=== PATIENT | male | born 1990 | race Two or more races ===

== ENCOUNTER 2021-12-24 22:23 | Emergency (ER) | payer MEDICAID ==
[~2021-12-24] VITALS: Ht 175.3 cm; Wt 100.0 kg
[2021-12-24 22:23] VITALS: BP 101/48
[2021-12-24 23:37] LABS: Basophils # (auto) 0 10 ^3/uL (0-0.2); Basophils % (auto) 0.1 % (0.0-2.0); Eosinophils # (auto) 0 10 ^3/uL (0-0.8); Hematocrit 46.9 % (41.0-53.0); Hemoglobin 15.1 g/dL (13.5-17.5); Lymphocytes # (auto) 0.6 10 ^3/uL (0.4-5.4); Lymphocytes % (auto) 3.9 % (10.0-50.0); Mean Corpuscular Hemoglobin 27.6 pg (28.0-32.0); Mean Corpuscular Hgb Conc. 32.1 g/dL (32.0-36.0); Mean Corpuscular Volume 85.8 fL (80.0-100.0); Monocytes # (auto) 0.5 10 ^3/uL (0-1.3); Monocytes % (auto) 2.8 % (0.0-12.0); Neutrophils # (auto) 15.3 10 ^3/uL (1.6-8.6); Neutrophils % (auto) 93.2 % (37.0-80.0); Red Blood Cells 5.46 10^6/uL (4.5-5.90); Red Cell Distribution Width 13.3 % (11.8-14.3); White Blood Cell 16.4 10^3/uL (4.4-10.8)
[2021-12-25] LABS: Albumin 4.5 g/dL (3.4-5.0); BUN/Creatinine Ratio 12.2; Calcium 9.1 mg/dL (8.5-10.1)
[2021-12-25 00:08] LABS: Bilirubin, Total 0.5 mg/dL (0.2-1.0); Total Protein 7.9 g/dL (6.4-8.2)
[2021-12-25 04:27] LABS: Amphetamine Screen, Urine NEGATIVE (NEGATIVE); Barbiturate Scree,Urine NEGATIVE (NEGATIVE); Benzodiazephine Screen, Urine NEGATIVE (NEGATIVE); Cannabinoid Screen, Urine POSITIVE (NEGATIVE); Cocaine Screen, Urine NEGATIVE (NEGATIVE); Opiate Scree,Urine NEGATIVE (NEGATIVE); Phencyclidine Screen, Urine NEGATIVE (NEGATIVE)
== END 2021-12-25 04:07 | disposition left against medical advice (07) ==
LOC: ER 22:23 → EDBD 22:23 → ER 12-25 04:07
DX: T40.411A Poisoning by fentanyl or fentanyl analogs, accidental (unintentional), initial encounter (principal); F17.210 Nicotine dependence, cigarettes, uncomplicated; R07.89 Other chest pain; R51.9 Headache, unspecified; Y92.89 Other specified places as the place of occurrence of the external cause
CPT/HCPCS: 36415; 70450; 71045; 80053; 80307; 84484; 85025; 93005